=== PATIENT | female | born 1965 | race Caucasian/White ===

== ENCOUNTER 2024-07-07 09:45 | Emergency (ER) | payer OTHER, SELFPAY ==
[2024-07-07 09:49] VITALS: BP 157/94
[2024-07-07] MEDS: LET TOPICAL ANESTHETIC GEL 3 ML TOPICAL (11:25)
--- NOTE | 2024-07-07 11:38 | ED.GENMED ---
History of Present Illness
General
Chief Complaint: Skin Surface Trauma
Source: patient
Exam Limitations: none
Time Seen by Provider: 07/07/24 10:58
Nursing documentation reviewed up to this point in time: agreed with
History of Present Illness
History of Present Illness:
58-year-old female presenting to the emergency department today with concerns after a fall while she was jogging at work fell hit her face did not lose consciousness not on blood thinners no neck pain also hit her left hand and left knee. Otherwise
able to ambulate. Unsure when her last tetanus shot was. Did injure her tooth she was immediately able to contact her dentist who will repair this later today.
Past History
Past History
ED Past Medical History: Psychiatric (depression)
ED Past Surgical History: Gynecological and Other (spontaneous pneumothorax in high school)
Social History
Personal:
Living: with family
Employment: Employed (is a vertrinarian)
Review of Systems
Review of Systems
Allergies reviewed?: Yes
All Other Systems: ROS reviewed and negative except as documented in HPI and ROS
Phy Exam
Physical Exam
Physical Exam:
GENERAL: Alert , in no apparent distress
EYE: pupils equal and reactive
NECK: Supple, no significant adenopathy.
ENT: 1 cm laceration to the bridge of the nose. Otherwise patient is superficial abrasion to her forehead nose upper lip. There is an injury to the patient's right frontal tooth on the maxillary region. Superficial abrasion as well below the left
eye. o/p clr, mmm.
CARDIAC: Regular rate and rhythm .
LUNGS: Clear breath sounds bilaterally, no acute respiratory distress, no wheezes/rales/rhonchi
ABDOMEN: Soft, without focal tenderness, no r/g, no cvat
NEUROLOGICAL: Alert and oriented, no focal neuro deficits
SKIN: Superficial abrasion to the left hand on the hypothenar eminence laterally. Roughly 1 cm in diameter. Warm and dry, skin intact.
MUSCULOSKELETAL: No edema, well perfused.
PSYCH: Normal and appropriate interaction.
Course
Orders/Labs/Results
Orders:
Orders
07/07/24 11:19
Facial Bones wo Contrast CT [CT Facial Bones W/o Iv Contras] Urgent
Comment:
Reason For Exam: facial injury
Head wo Contrast CT [CT Head W/o Iv Contrast] Urgent
Comment:
Reason For Exam: head injury
07/07/24 11:25
Lidocaine/Epinephrine/Tetracai [Let Topical Anesthetic Gel] 3 ml TOPICAL NOW STA
07/07/24 11:44
Ibuprofen [Motrin] 400 mg PO NOW STA
07/07/24 11:46
Ibuprofen [Motrin] 400 mg .ROUTE .STK-MED ONE
07/07/24 14:23
Amoxicillin 875 mg/Clav 125 mg [Augmentin 875 mg/125 mg] 1 tablet PO NOW STA
Vital Signs
Initial and Last Documented VS:
Initial Vital Signs
Pulse Resp BP Pulse Ox
70 16 157/94 99
07/07/24 09:49 07/07/24 09:49 07/07/24 09:49 07/07/24 09:49
Last Documented Vital Signs
Pulse Resp BP Pulse Ox
74 16 140/71 99
07/07/24 14:00 07/07/24 14:00 07/07/24 14:00 07/07/24 14:00
Procedures
Laceration Closure
Superior Anterior Nose:
Status of Wound: clean
Size of Wound in cm: 1
Description of Wound Edges: sharp and surrounded by abrasion
Preparation: cleaned with saline
Anesthesia: 1% Lidocaine
Revision/Debridement: routine- no revision and irrigate-direct pressure
Wound exploration: explored to base- no FB and no tendon involvement
Type of Closure: single layer closure
Skin Closure Material: 5-0 chromic gut
Number of sutures: 2
Superior Medial Lip:
Status of Wound: clean
Size of Wound in cm: 2.5
Description of Wound Edges: sharp
Preparation: cleaned with saline
Anesthesia: 1% Lidocaine
Revision/Debridement: routine- no revision and irrigate-direct pressure
Wound exploration: explored to base- no FB and no tendon involvement
Type of Closure: single layer closure
Skin Closure Material: 5-0 chromic gut
Number of sutures: 3
MDM/Problems Addressed
MDM/Problems Addressed:
58-year-old female presenting to the emergency department after trip and fall prior to arrival. Hit her face did not lose consciousness no neck pain not on blood thinners. Does have superficial abrasion a small laceration to her nose. Otherwise
good range of motion strength of all extremities no evidence of bony injury. Laceration closed on the nasal bridge with 2 nondissolving stitches. Cleaned out thoroughly and also started on antibiotics as there appears to be an underlying fracture.
Otherwise her upper lip was anesthetized and then closed with 3 dissolving stitches. Otherwise stable for immediate follow-up with dental for dental correction.
*Critical Care Note
Total Time (30-74mins, 75-104mins- exclusive of procedures): Not Applicable
ED Attending Note
-
Portions of this chart may have been created with voice recognition software.� Occasional wrong word or��sound alike� substitutions may have occurred due to the inherent limitations of voice recognition software.
Discharge Plan
Departure
Patient Disposition: Home (Routine Discharge)
Date of Disposition: 07/07/24
Time of Disposition: 14:25
Patient with high blood pressure during this ER visit?: No
Condition: Good
Covid-19: Not Applicable
Discharge Problem:
Fracture of nasal bone, Laceration of nose, Laceration of lip, Dental injury
Instructions: Wound Care (DC), Laceration Repair With Stitches (DC)
Prescriptions:
New
amoxicillin-pot clavulanate 875-125 mg tablet
1 tab PO BID 5 Days Qty: 10 0RF
No Action
hydrocodone-acetaminophen 1 TABLET tablet
1 tab PO Q4HPRN PRN (Reason: pain) Qty: 15 0RF
Referrals:
Soco Arnold MD [Family Provider] -
Activity Restrictions/Additional Instructions:
You came to the emergency department today with concerns of an injury to your nose and lip. You are found to have a fracture to her nasal bridge. This was also closed by 2 stitches that will need removal in 7 days. The dissolving stitches to your
lip dissolve in about 1 week. Please follow closely with a dentist today. Return for any worsening, new or concerning symptoms.
Interventions
Interventions:
*Risk Screen - Suicide Last Done: 07/07/24 09:51
*General Assessment Last Done: 07/07/24 10:56
*Neglect/Abuse Screening Last Done: 07/07/24 09:51
ED- Fall Risk Assessment Last Done: 07/07/24 10:56
*Nursing Disposition Last Done: 07/07/24 14:36
ED-Skin Assessment Last Done: 07/07/24 10:56
Discharge Date and Time
Discharge Date/Time: 07/07/24 14:36
Print Language: [id number]
[2024-07-07] MEDS: MOTRIN 400 MG PO (11:44)
[2024-07-07 12:00] VITALS: BP 142/74
[2024-07-07 14:00] VITALS: BP 140/71
[2024-07-07] MEDS: AUGMENTIN 875 MG/125 MG 1 TABLET PO (14:34)
== END 2024-07-07 14:36 | disposition home or self-care (01) ==
LOC: EMR 09:45
PROVIDERS: EMERGENCY PHYSICIAN Emergency Medicine; FAMILY PHYSICIAN Internal Medicine
DX: S02.2XXB Fracture of nasal bones, initial encounter for open fracture (principal); S01.511A Laceration without foreign body of lip, initial encounter; S09.93XA Unspecified injury of face, initial encounter; S60.512A Abrasion of left hand, initial encounter; W01.0XXA Fall on same level from slipping, tripping and stumbling without subsequent striking against object, initial encounter
CPT/HCPCS: 12013; 99284; 70450; 70486

== ENCOUNTER → 2024-08-31 13:38 | Outpatient (REF) | payer OTHER, SELFPAY | LOC: HWRAD 13:38 | PROVIDERS: ATTENDING PHYSICIAN Urology; FAMILY PHYSICIAN Internal Medicine | DX: Z87.440 Personal history of urinary (tract) infections (principal) | CPT/HCPCS: 74176 ==